=== PATIENT | female | born 2000 | race Hispanic/Latino ===

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

== ENCOUNTER 2022-05-05 23:29 | Emergency (ER) | payer MEDICAID ==
[~2022-05-05] VITALS: Ht 160 cm; Wt 86.2 kg
[2022-05-05 23:30] VITALS: BP 120/77
[2022-05-06 00:08] LABS: APPEARANCE,URINE CLEAR (CLEAR); BILIRUBIN,URINE NEGATIVE (NEGATIVE); COLOR,URINE LIGHT-YELLOW (YELLOW); GLUCOSE, URINE (UA) NEGATIVE (NEGATIVE); KETONES,URINE NEGATIVE (NEGATIVE); LEUKOCYTE ESTERASE ,URINE NEGATIVE Leu/uL (NEGATIVE); NITRATE,URINE NEGATIVE (NEGATIVE); OCCULT BLOOD,URINE NEGATIVE (NEGATIVE); PH,URINE 5.5 (5.0-8.0); PROTEIN,URINE 10 mg/dL (NEGATIVE); UROBILINOGEN,URINE 0.2 mg/dL (0.2-1.0)
[2022-05-06 00:10] LABS: HCG,QUALITATIVE URINE NEGATIVE (NEGATIVE)
[2022-05-06 00:11] LABS: MUCUS,URINE RARE LPF (None Seen); SQUAMOUS EPITHELIAL CELL,UR FEW /HPF (0-2); WBC,URINE 0-1 /HPF (0-1)
[2022-05-06] MEDS ORDERED: OMEP20TA2 PO (01:23)
[2022-05-06] MEDS ORDERED: ONDA-104 PO (01:23)
== END 2022-05-06 01:52 | disposition home or self-care (01) ==
LOC: EDH 23:29
DX: B34.9 Viral infection, unspecified (principal); R11.2 Nausea with vomiting, unspecified; Z20.822 Contact with and (suspected) exposure to COVID-19; Z90.89 Acquired absence of other organs
CPT/HCPCS: 99283; 87635; 87880; 87804 ×2; 81001; 81025; C9803

== ENCOUNTER 2022-07-09 20:54 | Emergency (ER) | payer MEDICAID ==
[~2022-07-09] VITALS: Ht 162.6 cm; Wt 91.6 kg
[~2022-07-09 20:54] MED LIST: OMEP20TA2 PO; ONDA-104 PO
[2022-07-09 22:35] LABS: BASOPHILS % (AUTO) 0.2 % (0.0-5.0); EOSINOPHILS % (AUTO) 0.2 % (0.0-8.0); HEMATOCRIT 42.5 % (36-48); LYMPHOCYTES % (AUTO) 9.9 % (21.0-51.0); MEAN CORPUSCULAR HEMOGLOBIN 31.3 pg (27.0-33.0); MEAN CORPUSCULAR HGB CONC 33.2 g/dL (32.0-36.0); MEAN CORPUSCULAR VOLUME 94.2 fL (80-100); MONOCYTES % (AUTO) 2.4 % (3.0-13.0); NEUTROPHILS % (AUTO) 86.9 % (40.0-77.0); PLATELET COUNT (AUTO) 259 K/uL (130-400); RED BLOOD CELL COUNT(AUTO) 4.51 MIL/uL (4.00-5.50); RED CELL DISTRIBUTION WIDTH 12.5 % (11.0-15.5); WHITE BLOOD COUNT (AUTO) 12.9 K/uL (4.8-10.8)
[2022-07-09 22:57] LABS: CREATININE 0.8 mg/dL (0.5-1.5); POTASSIUM 4.1 mmol/L (3.5-5.1)
[2022-07-09 23:01] LABS: TOTAL PROTEIN, SERUM 8.2 g/dL (6.0-8.3)
[2022-07-09 23:06] LABS: APPEARANCE,URINE CLEAR (CLEAR); BILIRUBIN,URINE NEGATIVE (NEGATIVE); COLOR,URINE LIGHT-YELLOW (YELLOW); GLUCOSE, URINE (UA) NEGATIVE (NEGATIVE); KETONES,URINE NEGATIVE (NEGATIVE); LEUKOCYTE ESTERASE ,URINE NEGATIVE Leu/uL (NEGATIVE); NITRATE,URINE NEGATIVE (NEGATIVE); OCCULT BLOOD,URINE NEGATIVE (NEGATIVE); PH,URINE 7.5 (5.0-8.0); PROTEIN,URINE NEGATIVE (NEGATIVE); UROBILINOGEN,URINE 0.2 mg/dL (0.2-1.0)
[2022-07-09 23:21] LABS: HCG,QUALITATIVE URINE NEGATIVE (NEGATIVE)
[2022-07-10] MEDS ORDERED: KETOROLAC 30MG VIAL (30MG/ML) IM ONE
[2022-07-10 01:33] VITALS: BP 128/74
[2022-07-10] MEDS ORDERED: IBUP-1493 PO (01:34)
[2022-07-10] MEDS ORDERED: OMEP40CA21 PO (01:35)
== END 2022-07-10 01:46 | disposition home or self-care (01) ==
LOC: EDH 20:54
DX: R10.11 Right upper quadrant pain (principal); R11.2 Nausea with vomiting, unspecified; R50.9 Fever, unspecified; Z79.1 Long term (current) use of non-steroidal anti-inflammatories (NSAID); Z90.49 Acquired absence of other specified parts of digestive tract
CPT/HCPCS: 99284; 76705; 80053; 83690; 85025; 81003; 81025; 36415; 96372; J1885

== ENCOUNTER 2022-08-15 18:12 | Emergency (ER) | payer MEDICAID ==
[~2022-08-15] VITALS: Ht 160 cm; Wt 89.8 kg
[~2022-08-15 18:12] MED LIST changes: +IBUP-1493 PO; +OMEP40CA21 PO
[2022-08-15 18:37] VITALS: BP 144/82
== END 2022-08-15 19:21 | disposition left against medical advice (07) ==
LOC: EDH 18:12
DX: S69.90XA Unspecified injury of unspecified wrist, hand and finger(s), initial encounter (principal); Z53.21 Procedure and treatment not carried out due to patient leaving prior to being seen by health care provider; X58.XXXA Exposure to other specified factors, initial encounter; Y93.89 Activity, other specified; Y92.89 Other specified places as the place of occurrence of the external cause; Y99.8 Other external cause status

== ENCOUNTER 2023-04-09 13:55 | Emergency (ER) | payer MEDICAID, OTHER ==
[~2023-04-09] VITALS: Ht 160 cm; Wt 88.5 kg
[2023-04-09 14:34] VITALS: BP 121/84; PULSE 120; RESP 16; O2SAT 96
== END 2023-04-09 17:57 | disposition left against medical advice (07) ==
LOC: EDH 13:55
DX: R05.9 Cough, unspecified (principal); Z53.21 Procedure and treatment not carried out due to patient leaving prior to being seen by health care provider
CPT/HCPCS: 99281